=== PATIENT | female | born 1965 | race Caucasian/White ===

== ENCOUNTER 2017-05-28 06:01 | Inpatient (IN) | payer BC ==
--- NOTE | 2017-05-15 14:38 | HP ---
HISTORY AND PHYSICAL: DATE OF ADMISSION: 05/28/17 She is entering [facility] on 05/28/17 for left total knee replacement. CHIEF COMPLAINT: Left knee pain. HISTORY OF PRESENT ILLNESS: The patient has had many years of severe arthritis of the left knee with deformity. She has lived as long as she can with it. She has tried all of the nonoperative care and now, a knee replacement has been requested and recommended. The patient has been seen and checked in my office multiple times. We have reviewed the goals, risks, and complications in the office and her questions have been answered. She has been checked preoperatively also by Dr. [place] Ribeiro. PAST MEDICAL HISTORY: Coronary artery disease with a stent in 2012. She had a recent pharmacologic stress test that was checked and reviewed by Dr. Ribeiro and there was felt to be no significant change from her previous testing. PAST SURGICAL HISTORY: She has had a hernia repair. MEDICATIONS: Daily meds include: 1. Metoprolol. 2. Aspirin. No bleeding tendencies. FAMILY HISTORY: No cancers. SOCIAL HISTORY: Alcohol consumption is 1 drink per month. She quit smoking many, many years ago. REVIEW OF SYSTEMS: No recent chest pain and no recent shortness of breath. PHYSICAL EXAMINATION GENERAL: Overweight, not acutely distressed, limping on the left lower extremity and the right lower extremity. VITAL SIGNS: The temp is 97.6, pulse 76, blood pressure 135/80. HEENT: The head is NC/AT. LUNGS: Clear bilaterally. HEART: Regular. S1 and S2 are normal. I do not appreciate any murmurs or gallops. ABDOMEN: Round, soft, nontender. I do not appreciate organomegaly. EXTREMITIES: She does a leg raise on the left lower extremity. The left dorsalis pedis pulse is 2+. The left knee has varus with medial tenderness, some anterior tenderness, nontender laterally and posteriorly. MCL and LCL are stable. Cricket and posterior drawer not done. The thigh and calf are soft. NEUROLOGIC: Cranial nerves are grossly intact. IMAGING: The knee radiographs show severe arthritis of the left knee with varus malalignment, [id number] sclerosis and osteophyte formation. IMPRESSION: Severe arthritis of the left knee with varus deformity. PLAN: Left total knee replacement. [id number]/[facility] #: [id number] [facility]
[~2017-05-28 06:01] MED LIST: Buffered Lidocaine 0.9% SYRIN* 5 ML/SYR SYRINGE INTRADERM ONE; Famotidine IV* 10 MG/ML 2 ML (20 mg) IV ONE; Metoclopramide IV* 5 MG/ML 2 ML VIAL IV SLOW PU ONE
[2017-05-28] MEDS ORDERED: Buffered Lidocaine 0.9% SYRIN* 5 ML/SYR SYRINGE ONE (06:10)
[2017-05-28] MEDS ORDERED: Famotidine IV* 10 MG/ML 2 ML (20 mg) ONE (06:10)
[2017-05-28] MEDS ORDERED: ceFAZolin 2 GM PREMIX (*) 50 ML IVPB ONE (06:10)
[2017-05-28] MEDS ORDERED: Metoclopramide IV* 5 MG/ML 2 ML VIAL ONE (06:10)
[2017-05-28] MEDS ORDERED: Bupivacaine 0.25% SDV* 30 ML ONE (07:18)
[2017-05-28] MEDS ORDERED: Bupivacaine 0.5% SDV PF* 30 ML VIAL ONE (07:18)
[2017-05-28] MEDS ORDERED: ceFAZolin 1 GM* X ONE DOSE IVPB ×2 (07:30)
[2017-05-28] MEDS ORDERED: KETAMINE HCL* 50 MG/ML 10 ML VIAL ONE (07:42)
[2017-05-28] MEDS ORDERED: Midazolam* 1 MG/ML 5 ML VIAL (5 MG) ONE ×2 (07:42→08:49)
[2017-05-28] MEDS ORDERED: Propofol* 10 MG/ML 20 ML BTL IV PUSH ONE ×2 (09:07→09:59)
[2017-05-28] MEDS ORDERED: Lactated Ringers 500 ml BAG* 500 ML IV PRN (09:08)
[2017-05-28] MEDS ORDERED: Ondansetron INJ* 2 MG/ML VIAL IV PRN ×3 (09:08→11:09)
[2017-05-28] MEDS ORDERED: diPHENhydraMINE IV* 50 MG/ML 1 ml VIAL (BENADRYL) IV PRN (09:08)
[2017-05-28] MEDS ORDERED: HYDROmorphone PCA* 20 MG/20 ML PCA.SYRING PCA SCH (10:00)
[2017-05-28] MEDS ORDERED: Ropivacaine* 300 MG in NS 0.9% 250 ML* 240 ML EPIDURAL SCH ×2 (10:00→10:30)
[2017-05-28] MEDS ORDERED: Sodium Chloride * 10 ML ONE (10:30)
[2017-05-28] MEDS ORDERED: Ropivacaine (OR use only) 2 MG/ML 1 ML ONE (10:30)
[2017-05-28] MEDS ORDERED: Morphine INJ* 2 MG/ML 1 ML SYRINGE (TWO MG - NEW SYRINGE VERSION) IV PRN (11:09)
[2017-05-28] MEDS ORDERED: HYDROmorphone INJ* 1 MG/ML CARPUJECT SYRINGE ONE ×2 (11:09→11:39)
[2017-05-28] MEDS ORDERED: traZODone TAB* 50 MG TAB PO PRN (11:09)
[2017-05-28] MEDS: HYDROmorphone INJ* 1 MG/ML CARPUJECT SYRINGE IV PRN ×2 (11:15→11:30)
[2017-05-28] MEDS ORDERED: oxyCODONE TAB* 5 MG TAB PO PRN (11:19)
[2017-05-28] MEDS ORDERED: ValACYclovir (*) 500 MG TAB PO PRN (11:20)
[2017-05-28] MEDS ORDERED: Fluticasone NASAL SPRAY 50MCG* 16 gm SPRAY BTL NASAL PRN (11:20)
[2017-05-28] MEDS ORDERED: HYDROmorphone INJ* 1 MG/ML CARPUJECT SYRINGE IV PRN (11:31)
[2017-05-28] MEDS ORDERED: HYDROmorphone PCA* 20 MG/20 ML PCA.SYRING ONE (11:41)
--- NOTE | 2017-05-28 12:27 | RAD ---
HISTORY: Postop COMPARISONS: March 13, 2017 VIEWS: 2, Frontal and lateral views of the left knee FINDINGS: BONE DENSITY: Normal. BONES: The patient is status post left knee arthroplasty. There is no hardware failure or osteolysis. JOINTS: The patient is status post left knee arthroplasty. ALIGNMENT: There is no dislocation. SOFT TISSUES: There is post surgical change to the soft tissues. OTHER FINDINGS: None. IMPRESSION: STATUS POST LEFT KNEE ARTHROPATHY
[2017-05-28] MEDS ORDERED: Dextrose 50% Syringe 50 ML* 25 GM/50 ML SYRINGE IV PUSH PRN (13:11)
[2017-05-28] MEDS: Clindamycin CAP* 150 MG PO SCH ×3 (15:20→20:58)
[2017-05-28] MEDS: ceFAZolin 1 GM VIAL(*) 1 GM in NS 0.9% 50 ML* 50 ML IVPB SCH ×2 (15:21→23:20)
[2017-05-28] MEDS: Insulin LISPRO* 1 UNITS UNIT SUBCUT SCH (17:18)
[2017-05-28] MEDS: CHROMIUM PICOLINATE 200 MCG PO SCH (17:19)
--- NOTE | 2017-05-28 17:24 | CONS ---
CONSULTATION REPORT: DATE OF ADMISSION: 05/28/17 CONSULTING PHYSICIAN: Sosa Garcia MD, (dictated by Nery Lee NP). PRIMARY CARE PHYSICIAN: Dr. Otero. CHIEF COMPLAINT: Postop left total knee arthroplasty. HISTORY OF PRESENT ILLNESS: The patient has had many years of severe arthritis of the left knee with deformity. Dr. Otero has been following. She has tried conservative options, now has elected to have a total left knee replacement. PAST MEDICAL HISTORY: 1. Coronary artery disease with an CO in 2012 with 3 stents placed. 2. Hypertension. 3. Hyperlipidemia and states she dose not tolerate Cholesterol lowering medications. 4. Hypothyroidism. 5. Diabetes 6. Herpes Simplex type 1. PAST SURGICAL HISTORY: She had a hernia repair in 2014. Previous to that, had a left breast benign tumor removed. HOME MEDICATIONS: 1. Tramadol 50 mg p.o. 4 times a day p.r.n. 2. Glipizide 5 mg p.o. b.i.d. 3. Valtrex 500 mg p.o. daily p.r.n. outbreak. 4. Nasal spray triamcinolone 1 puff nasal daily p.r.n. 5. Multivitamin 1 tablet p.o. 6. Metoprolol 50 mg b.i.d. 7. Metformin 1000 mg p.o. b.i.d. 8. Lisinopril 40 mg p.o. daily. 9. Victoza 1.8 subcu daily. 10. Levothyroxine 125 mcg p.o. daily. 11. Insulin degludec 24 units b.i.d. 12. Ibuprofen 600 mg p.o. every 6 hours p.r.n. 13. Hydrochlorothiazide 12.5 mg p.o. every a.m. 14. Ferrous sulfate 28 mg p.o. every p.m. 15. Clindamycin 150 mg p.o. 4 times a day. 16. Aspirin 81 mg p.o. daily. 17. Vitamin C 1000 mg p.o. every a.m. 18. Amlodipine 2.5 mg p.o. daily. FAMILY HISTORY: There is no history of heart disease, cancer or diabetes. SOCIAL HISTORY: She is . Lives with her spouse. Has 1 daughter who is in her 30s. She quit smoking many years ago. Minimal alcohol consumption. No illicit drug use. REVIEW OF SYSTEMS: Denies any recent weight loss or gain. Denies fatigue, fever, weakness, trouble sleeping. Skin: No rashes, itching or dryness. Denies headache or head injury. Denies earaches. No change in eye vision. Denies stuffiness of nose or sinus pain. Denies dry mouth, bleeding, or dentures. Neck: Free of lumps. No swollen glands. Denies pain. Respiratory : Denies cough, wheezing or shortness of breath. Vascular: Denies chest pain , difficulty breathing, shortness of breath with activity. Has not had any issues since her stent placement in 2012. GI: Denies nausea, vomiting, diarrhea or constipation. Urinary: Denies urgency, burning or pain. No frequency, no blood in urine. Musculoskeletal: Complains of left knee pain. Other joints asymptomatic. Neuro: Denies dizziness, fainting, seizures, weakness, numbness or tingling. Hematologic: Denies easy bruising or bleeding. Endocrine: Denies heat or cold intolerance. She is taking Synthroid. Psych: Denies depression, nervousness or increasing stress. PHYSICAL EXAMINATION: General: Overweight, not acutely distressed. Lying on the stretcher in upright position, fully awake and talkative. Most recent vital signs: Heart rate 66, respiratory rate 16, O2 sat 100% on 2 L , blood pressure 136/79, temperature 96.8. HEENT: Asymptomatic. Lungs: Clear bilaterally. Heart: Regular sinus rhythm. S1 and S2 normal. I do not appreciate any murmurs or gallops. Abdomen: Round, soft, nontender. Hypoactive bowel sounds. Extremities: Currently left leg in Oswaldo wrap with ice to it, able to lift her right leg easily, good range of motion of feet bilaterally. Good sensation. Positive pedal pulses bilaterally. Neuro: Cranial nerves are grossly intact. She is awake, alert and oriented x3. Airplane Mechanic were equal. DIAGNOSTIC STUDIES: Knee x-rays, impression: Status post left knee arthroplasty. Recent blood work: Currently her fingerstick is 154, glucose. Her preop H and H 13.2 and 39 on 05/15/17. Chemistry: Sodium was 138, potassium 4.3, chloride 102, carbon dioxide 28, BUN 27, creatinine 0.97, glucose at that time fasting was 78. Her hemoglobin A1c in April was 9.1. Her cholesterol in October of this year was 218, triglycerides 208, LDL 140, HDL 36.3. TSH in April of this year 3.45, free T4 of 1.02. ASSESSMENT AND PLAN: This is a 51-year-old female who presented to [facility] today for an elective left total knee arthroplasty, surgeon, Dr. Otero. She had preop cardiac clearance by Dr. Ribeiro, primary physician Dr. Rivers. She is now in recovery room doing well, alert, oriented, moving all extremities. No complaints. She will be transferred to the surgical floor. We have been asked to consult for management given her multiple comorbidities. 1. Total left knee arthroplasty to be followed by surgical orthopedics. 2. Hypertension. We will continue her metoprolol, amlodipine, hydrochlorothiazide, lisinopril, with hold parameters for systolic BP less than 100. 3. Hypothyroidism. We will continue her levothyroxine. 4. Diabetes. I have placed her on a heart healthy, consistent carb diet. We will order fingersticks before meals. We will cover with lispro insulin per protocol. Continue her glipizide and hold her metformin. 5. Hyperlipidemia. As stated by the patient, it is under control and that she is not able to tolerate any statins due to nausea and joint pain. 6. Deep vein thrombosis prophylaxis, she is at a high risk. Stated by the patient, she does not tolerate anticoagulation We will defer to Orthopedics to decide on appropriate treatment and management of her deep vein thrombosis protection. She is currently on aspirin b.i.d. she will be out of bed per Orthopedics orders as soon as possible. 7. Fluids, electrolytes and nutrition. Consistent carb, Heart Healthy Diet. When she is taking adequate p.o. intake her IV will be changed to KVO. 8. Code status, is a full code status. 9. Her surrogate decision maker is her who is at the bedside throughout my exam. TIME SPENT: Time spent on this admission was approximately 60 minutes, with greater than half the time was spent [id number] with the patient obtaining my history and physical, the other half was spent going over the plan of care and implementing the plan of care. I did discuss this case with Dr. Garcia, who is in agreement with the plan. NERY LUPE, TOWER CRANE OPERATOR [id number]/[facility] #: [id number] [facility]
[2017-05-28] MEDS: Aspirin TAB* 325 MG PO SCH (20:43)
[2017-05-28] MEDS: Docusate CAP* 100 MG PO SCH (20:44)
[2017-05-28] MEDS: glipiZIDE TAB* 5 MG PO SCH (20:45)
[2017-05-28] MEDS: Metoprolol Succinate XL TAB* 50 MG PO SCH (20:45)
[2017-05-28] MEDS ORDERED: metFORMIN* 1,000 MG TAB PO SCH (21:00)
--- NOTE | 2017-05-29 00:38 | OP ---
CC: Dr. Sanford Hobbs OPERATIVE REPORT: DATE OF OPERATION: 05/28/17 DATE OF : 63 SURGICAL CARE: Left knee. SURGEON: Adriel Otero MD ASSISTANTS: 1. OLENA Groves 2. Domonique Perry, surgical orderly. ANESTHESIOLOGIST: Dr. Tyler Poe. ANESTHESIA: Spinal with epidural and IV sedation. PRE-OPERATIVE DIAGNOSIS: Severe arthritis of the left knee with varus malalignment, longstanding, n o longer responsive to the nonoperative care. POST-OPERATIVE DIAGNOSIS: Severe arthritis of the left knee with varus malalignment, longstanding, no longer responsive to the nonoperative care. OPERATIVE PROCEDURE: Left total knee replacement. COMPONENTS UTILIZED: Stephie Persona knee, a size 7 femur, a size 32 patella, a size D tibia with a 10 articular surface. COMPLICATIONS: There were no complications. DRAINS: Two blood collection drains, left knee, at the end of the case. BLOOD LOSS: 200 mL. REPLACEMENT: Crystalloid fluids. OPERATIVE INDICATION: Severe arthritis of the knee, it has been no longer responsive to nonoperativ e care. She has been in an business operations manager brace for months with increasing pain. DESCRIPTION OF PROCEDURE: The patient was brought to the operating room and placed on the operating room table in a supine position then into a seated position for administration of the anesthetic. She was returned to the supine position. A Pablo catheter was carefully inserted. The left proxima l thigh was wrapped with a tourniquet and the left leg was positioned on a padded foot piece for the left foot. The leg was given a preliminary chlorhexidine prep in the region of the knee and then a formal ChloraPrep from the tourniquet to the tips of the toes. After prepping, draping, and sealin g off, we did our universal protocol time-out confirming Ayana Aleksey and a plan for a left total kne e replacement. We all agreed and we proceeded. The tourniquet control was utilized on this case du ring the cleanup and cementing phase of the case and the rest of the surgical care was done mostly w ith the knee acutely flexed with the left foot on a padded foot piece. The skin incision went from 2 fingerbreadths superior to the superior pole of the patella to the medial aspect of the tibial tub ercle. The skin and subcu was divided down to the deep fascia. The prepatellar bursa was traversed and the quadriceps tendon was divided at the junction of the vastus, rectus femoris and vastus medi amanda, staying as close to vastus medialis muscle as possible. Medial parapatellar and then down to the tibia where the tissues were divided down to the medial aspect of the tibial tubercle. The medi al soft tissues and the tibia were elevated subperiosteally going around to the deep MCL and then to the posterior medial corner of the knee. There was osteophyte on the medial tibial plateau, medial femoral condyle, intercondylar notch, the patella. Complete eburnation of bone medial femoral cond yle, medial tibial plateau with some scooping out of the medial tibial plateau. Eburnation of bone on the lateral patellar facet as well. The remains of the anterior horn of medial meniscus was caref ully excised. The MCL was carefully preserved throughout the entire case. The intercondylar osteop hytes were removed. The ACL and PCL were uplifted from their femoral origins and the tibia was made so that it could be subluxated for from under the femur. The PCL was carefully excised and great c are was taken while working in the popliteal fossa with careful hemostasis. The lateral meniscus wa s carefully excised and careful hemostasis was kept at the periphery of the lateral meniscus for the lateral geniculate. The distal anterior femur was exposed subperiosteally for referencing and yoselin uring and peripatellar synovectomy was completed for the patellar workup. The proximal tibial cut wa s made. First our goal here was to have a tibial surface that would be perpendicular to the long ax is of the tibia and have a slight posterior slope removing a couple of millimeters on the medial jong e and 10 to 14 mm on lateral side. The femoral intramedullary drill was then completed and the femu r was suctioned to discourage any embolization now or later in the case. The distal femoral cutting guide was applied on one because of a small flexion contracture in 6 degrees of valgus and the dist al femoral cut was completed. The extension gap was noted to accommodate the 10-mm block. The femu r was measured for a size 7 and the femur completed with the anterior, posterior, and chamfering cut s. After this, we removed the remainder of the medial meniscus carefully preserving the MCL. We re moved the remainder of the posterior horn medial meniscus, the posterior horn lateral meniscus again achieving great care for hemostasis posteriorly. Large osteophyte was removed from the posterior m edial femoral condyle with an osteotome. At this point, we had nice ligamentous balance and 90 degre es of flexion with a 10- mm block. The femur was completed with the intercondylar cutout. The femu r was the suctioned empty once again. The femoral canal was cleaned x6 with saline, suctioned empty , and the bone plug was inserted. The tibia was completed for a size D, and the knee was articulate d and extended with the D tibia 10 articular surface and the 7 femur with only extension, nice ligam entous balance in extension, and ligamentous balance in 90 degrees of flexion as well. The patella was cut flat, a 32 was chosen, 3 drill holes were made and these were undercut for optimal cement in terdigitation. The lateral release was not necessary. The leg was exsanguinated, the tourniquet was elevated to 300, and we then proceeded with a cleanup of the knee with 2 L of pulsed saline with the knee in extension and lots of suctioning and cleanup. The knee was then flexed. The retractors were put into position and the bony surfaces were cleane d in flexion with pulsed saline irrigation. All surfaces were then dried. The cement was mixed and the components were cemented into position, the patella followed by the tibia, followed by the femu r. Each was impacted, excess cement was removed, and the knee was articulated and extended during t he final hardening. Once the hardening was complete then we removed the excess cement that was still present posteriorly around the patella, medial, lateral, and the femoral component. The soft tissues were infiltrated w ith Marcaine 0.5% without epinephrine 30 mL and the careful hemostasis was achieved also during the closure. During the closure, we irrigated several times with the saline. The knee was flexed compl etely past 125 degrees several times and extended completely. Ligaments were noted to be stable. T he quad mechanism closed with interrupted #1 Polysorb in a figure-of- eight fashion, the same with t he medial retinaculum. Distally, we used 0 Polysorb. We used 0 Polysorb on the deep fascial bursa a nd then 3-0 Polysorb on the superficial subcu and the skin was carefully closed with torres. The k nee was washed and dried and covered with Betadine-soaked release followed by sterile gauze. The dr goodwin were brought out through superolateral pouch and they were addressed the same way and then ster ile Webril, cryotherapy cuff, ABD pads, and a 6- inch Oswaldo bandage loosely applied. The dorsalis ped is pulse was noted to be 2+ at the end of the case, and the patient was returned to the [facility] [place] in stable and satisfactory condition having tolerated the procedure very well. [id number]/[facility] #: [id number]
[2017-05-29] MEDS: Levothyroxine TAB* 100 MCG TAB PO SCH (05:55)
[2017-05-29] MEDS ORDERED: diPHENhydraMINE IV* 50 MG/ML 1 ml VIAL (BENADRYL) IV PRN (06:00)
[2017-05-29 06:37] LABS: Hematocrit 29 % (35-47); Hemoglobin 9.9 g/dl (12.0-16.0)
[2017-05-29 06:53] LABS: BUN/Creatinine Ratio 17.9 (8-20); Calcium 7.9 mg/dL (8.6-10.3); EGFR Non-African American 54.4 (>60); Potassium 3.7 mmol/L (3.5-5.0)
[2017-05-29] MEDS: oxyCODONE TAB* 5 MG TAB PO PRN ×4 (07:12→20:09)
[2017-05-29] MEDS: ceFAZolin 1 GM VIAL(*) 1 GM in NS 0.9% 50 ML* 50 ML IVPB SCH (07:48)
[2017-05-29] MEDS: Metoprolol Succinate XL TAB* 50 MG PO SCH ×2 (08:20→20:11)
[2017-05-29] MEDS: Insulin LISPRO* 1 UNITS UNIT SUBCUT SCH ×3 (08:21→17:48)
[2017-05-29] MEDS: Clindamycin CAP* 150 MG PO SCH ×4 (08:23→20:10)
[2017-05-29] MEDS: amLODIPine TAB* 5 MG PO SCH (08:24)
[2017-05-29] MEDS: Docusate CAP* 100 MG PO SCH ×2 (08:24→20:10)
[2017-05-29] MEDS: Vitamin THERAPEUTIC TAB PO SCH (08:24)
[2017-05-29] MEDS: Aspirin TAB* 325 MG PO SCH ×2 (08:24→20:10)
[2017-05-29] MEDS: glipiZIDE TAB* 5 MG PO SCH ×2 (08:24→20:10)
[2017-05-29] MEDS: Hydrochlorothiazide TAB* 25 MG PO SCH (08:25)
[2017-05-29] MEDS: Ascorbic Acid TAB* 500 MG PO SCH (08:26)
[2017-05-29] MEDS: Lisinopril TAB* 10 MG PO SCH (08:26)
[2017-05-29] MEDS ORDERED: HYDROCHLOROTHIAZIDE PO SCH (09:00)
[2017-05-29] MEDS ORDERED: LISINOPRIL 40 MG PO SCH (09:00)
[2017-05-29] MEDS ORDERED: NON FORMULARY MED* (Amlodipine Besylate [Norvasc 2.5 Mg Tab] 2.5 MG) PO SCH (09:00)
--- NOTE | 2017-05-29 16:48 | PN ---
Subjective Date of Service: 05/29/17 Interval History: Patient seen and examined at bedside. Patient states she is having some burning while urinating that just started as well as frequency. She is getting some pain relief with her TRANSLATOR AND INTERPRETER and oral oxycodone but still rates is at 7/10. She denies SOB. Family History: Unchanged from Admission Social History: Unchanged from Admission Past Medical History: Unchanged from Admission Objective Active Medications: Amlodipine Besylate (Norvasc Tab*) 2.5 mg PO QAM DOLLY Ascorbic Acid (Vitamin C Tab*) 1,000 mg PO QAM DOLLY Aspirin (Aspirin Tab*) 325 mg PO BID DOLLY Clindamycin HCl (Cleocin Cap*) 150 mg PO QID DOLLY Diphenhydramine HCl (Benadryl Iv*) 25 mg IV Q6H PRN Docusate Sodium (Colace Cap*) 100 mg PO BID DOLLY Fluticasone Propionate (Flonase Nasal [place] 50mcg*) 1 spray NASAL DAILY PRN Glipizide (Glucotrol Tab*) 5 mg PO BID DOLLY Hydrochlorothiazide (Hydrodiuril Tab*) 12.5 mg PO QAM [facility] Hydromorphone HCl (Dilaudid Cytology Laboratory Manager*) 20 mg in 20 mls @ 0 mls/hr TRANSLATOR AND INTERPRETER .change Q24H DOLLY; Per Protocol Lactated Ringer's (Lactated Ringers 1000 Ml Bag*) 1,000 mls @ 100 mls/hr IV PER RATE DOLLY Insulin Human Lispro (Humalog*) 0 units SUBCUT AC DOLLY Levothyroxine Sodium (Synthroid Tab*) 125 mcg PO 0600 DOLLY Lisinopril (Prinivil Tab*) 40 mg PO QAM [facility] Metoprolol Succinate (Toprol Xl Tab*) 50 mg PO BID DOLLY Morphine Sulfate (Morphine Inj (Syringe)*) 2 mg IV Q2H PRN Multivitamins (Theragran Tab*) 1 tab PO DAILY DOLLY Chromium Picolinate [Chromium Picolinate ] 200 Mcg 200 mcg PO QPM DOLLY Ondansetron HCl (Zofran Inj*) 4 mg IV Q6H PRN Oxycodone HCl (Roxycodone Tab*) 10 mg PO Q4H PRN Oxycodone HCl (Roxycodone Tab*) 5 mg PO Q4H PRN Trazodone HCl (Desyrel Tab*) 25 mg PO BEDTIME PRN Valacyclovir HCl (Valtrex 500 Mg (*)) 500 mg PO DAILY PRN; Protocol 05/29/17 05/29/17 05/29/17 07:12 07:28 08:00 Temperature 98.6 F Pulse Rate 72 Respiratory 16 16 18 Rate Blood Pressure 122/52 (mmHg) O2 Sat by Pulse 100 96 Oximetry Oxygen Devices in Use Now: Nasal Cannula Appearance: sitting up in bed, NAD Eyes: No Scleral Icterus, PERRLA Ears/Nose/Mouth/Throat: NL Teeth, Lips, Gums Neck: NL Appearance and Movements; NL JVP Respiratory: Symmetrical Chest Expansion and Respiratory Effort, Clear to Auscultation Cardiovascular: NL Sounds; No Murmurs; No JVD Abdominal: NL Sounds; No Tenderness; No Distention Extremities: No Edema Skin: - - L knee incision C/D/I Neurological: Alert and Oriented x 3, NL Muscle Strength and Tone Result Diagrams: 05/29/17 06:10 05/29/17 06:10 Assess/Plan/Problems-Billing Patient is a 51 y/o F w/ hx of CAD s/p stents 2012, HTN, hypothyroidism, Type II diabetes, HTN who underwent an elective left toal knee replacement on 2016. Hospitalists were asked to assist with management of the patient medical co-morbities. - Patient Problems (1) Status post left knee replacement Comment: Management per Orthopedic Surgery. H/H stable post-op. Samy removed this AM. Continue pain control with Dilaudid TRANSLATOR AND INTERPRETER and PO Oxycodone. PT/OT (2) Type II diabetes mellitus Comment: Sugars relatively controlled with sliding scale and glipizide only. Metformin is on hold. Here injectable Tresiba 24 units which she supposedly take 2x daily. This is on hold as sugars have been <200. Continue sliding scale only for now. (3) Dysuria Comment: Will check UA/UC. Await results for abx. (4) CAD (coronary artery disease) Comment: Continue ASA and beta ida. She does not tolerate statins. (5) HTN (hypertension) Comment: Controlled with home regimen of Lisinopril, Amlodipine, HCTZ, and Metoprolol. (6) HLD (hyperlipidemia) Comment: The patient does not tolerate statins. (7) Hypothyroidism Comment: Continue Synthroid. (8) DVT prophylaxis Comment: ASA BID per Ortho. (9) Full code status Current Visit: Yes Status: Acute Code(s): Z78.9 - OTHER SPECIFIED HEALTH STATUS SNOMED Code(s): 950513584 Status and Disposition: Inpatient. Dispo per orthopedic surgery.
[2017-05-29] MEDS: CHROMIUM PICOLINATE 200 MCG PO SCH (17:50)
[2017-05-29 19:08] LABS: Urine Bilirubin Negative (Negative); Urine Glucose 3+(>=500 mg/dL) (Negative); Urine Nitrite Negative (Negative)
[2017-05-30] MEDS: oxyCODONE TAB* 5 MG TAB PO PRN ×6 (00:14→23:06)
[2017-05-30] MEDS ORDERED: NS 0.9% 500 ML BAG* 500 ML IV SCH (03:00)
[2017-05-30] MEDS ORDERED: Levothyroxine TAB* 25 MCG TAB ONE (06:14)
[2017-05-30] MEDS: Levothyroxine TAB* 100 MCG TAB PO SCH (06:18)
[2017-05-30 06:40] LABS: Hematocrit 32 % (35-47); Hemoglobin 10.8 g/dl (12.0-16.0)
[2017-05-30] MEDS ORDERED: Insulin GLARGINE(*) 1 UNITS UNIT SUBCUT SCH ×2 (08:00→21:00)
[2017-05-30] MEDS: Insulin LISPRO* 1 UNITS UNIT SUBCUT SCH ×3 (08:43→17:30)
[2017-05-30] MEDS: Ascorbic Acid TAB* 500 MG PO SCH (10:15)
[2017-05-30] MEDS: Vitamin THERAPEUTIC TAB PO SCH (10:18)
[2017-05-30] MEDS: glipiZIDE TAB* 5 MG PO SCH ×2 (10:18→21:25)
[2017-05-30] MEDS: amLODIPine TAB* 5 MG PO SCH (10:18)
[2017-05-30] MEDS: Aspirin TAB* 325 MG PO SCH ×2 (10:18→21:24)
[2017-05-30] MEDS: Docusate CAP* 100 MG PO SCH ×2 (10:19→21:25)
[2017-05-30] MEDS: Hydrochlorothiazide TAB* 25 MG PO SCH (10:19)
[2017-05-30] MEDS: Metoprolol Succinate XL TAB* 50 MG PO SCH ×2 (10:19→21:25)
[2017-05-30] MEDS: Lisinopril TAB* 10 MG PO SCH (10:20)
[2017-05-30] MEDS: Clindamycin CAP* 150 MG PO SCH ×4 (10:22→21:25)
--- NOTE | 2017-05-30 10:47 | PN ---
Progress Note - Progress Note Date of Service: 05/30/17 SOAP: Subjective: []Patient seen OOB in chair, knee pain moderate but just took Roxycodone and it is helping. 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 Objective: [] Vital Signs Temp 97.6 F 05/30/17 07:20 Pulse 101 05/30/17 07:20 Resp 18 05/30/17 10:24 BP 154/74 05/30/17 07:20 Pulse Ox 96 05/30/17 08:34 Intake & Output 05/29/17 05/30/17 05/30/17 18:59 06:59 18:59 Intake Total 2731 1350 360 Output Total 1150 1800 550 Balance 1581 -450 -190 Intake: IV Fluids 1666 ABX - CEFAZOLIN 57 LR 1609 Oral 1065 1350 360 Output: Urine 1150 1800 550 Laboratory Results - last 24 hr 05/29/17 05/29/17 05/29/17 11:53 17:41 18:55 Hgb Hct POC Glucose (mg/dL) 377 H 303 H Urine Color Straw Urine Appearance Clear Urine pH 6.0 Ur Specific [place] 1.011 Urine Protein Negative Urine Ketones Trace H Urine Blood Negative Urine Nitrate Negative Urine Bilirubin Negative Urine Urobilinogen Negative Ur Leukocyte Esterase Negative Urine Glucose 3+(>=500 mg/dl) H Urine Ascorbic Acid * H 05/30/17 06:17 Hgb 10.8 L Hct 32 L POC Glucose (mg/dL) Urine Color Urine Appearance Urine pH Ur Specific [place] Urine Protein Urine Ketones Urine Blood Urine Nitrate Urine Bilirubin Urine Urobilinogen Ur Leukocyte Esterase Urine Glucose Urine Ascorbic Acid Left knee dressings removed, incision benign Wound washed with mild soap, dried with new betadine soaked telfa and 4x4s, MICHEAL applied. calf NT +DF/PF left ankle sensation and circulation intact Assessment: []s/p Left total knee arthroplasty POD #2 Plan: []ASA for DVT prophylaxis Discontinue REDUCTION FURNACE OPERATOR HELPER Discharge home with VNS Saturday
[2017-05-30] MEDS ORDERED: Magnesium Hydroxide LIQ* 30 ML UDC PO PRN (10:48)
[2017-05-30] MEDS ORDERED: Polyethylene Glycol 3350* 17 GM PACKET PO PRN (10:49)
--- NOTE | 2017-05-30 16:23 | PN ---
Subjective Date of Service: 05/30/17 Interval History: Patient seen and examined at bedside. Patient still having urinary frequency. She states pain improved. Sugars in the 200s this morning. Family History: Unchanged from Admission Social History: Unchanged from Admission Past Medical History: Unchanged from Admission Objective Active Medications: Amlodipine Besylate (Norvasc Tab*) 2.5 mg PO QAM [facility] Ascorbic Acid (Vitamin C Tab*) 1,000 mg PO QAM [facility] Aspirin (Aspirin Tab*) 325 mg PO BID [facility] Clindamycin HCl (Cleocin Cap*) 150 mg PO QID [facility] Diphenhydramine HCl (Benadryl Iv*) 25 mg IV Q6H PRN Docusate Sodium (Colace Cap*) 100 mg PO BID [facility] Fluticasone Propionate (Flonase Nasal [place] 50mcg*) 1 spray NASAL DAILY PRN Glipizide (Glucotrol Tab*) 5 mg PO BID [facility] Hydrochlorothiazide (Hydrodiuril Tab*) 12.5 mg PO QAM [facility] Sodium Chloride (Ns 0.9% 500 Ml Bag*) 500 mls @ 0 mls/hr IV PER RATE [facility] Insulin Human Lispro (Humalog*) 0 units SUBCUT AC [facility] Levothyroxine Sodium (Synthroid Tab*) 125 mcg PO 0600 [facility] Lisinopril (Prinivil Tab*) 40 mg PO QAM [facility] Magnesium Hydroxide (Milk Of Magnesia Liq*) 30 ml PO Q6H PRN Metoprolol Succinate (Toprol Xl Tab*) 50 mg PO BID [facility] Morphine Sulfate (Morphine Inj (Syringe)*) 2 mg IV Q2H PRN Multivitamins (Theragran Tab*) 1 tab PO DAILY [facility] Chromium Picolinate [Chromium Picolinate ] 200 Mcg 200 mcg PO QPM [facility] Ondansetron HCl (Zofran Inj*) 4 mg IV Q6H PRN Oxycodone HCl (Roxycodone Tab*) 10 mg PO Q4H PRN Oxycodone HCl (Roxycodone Tab*) 5 mg PO Q4H PRN Polyethylene Glycol/Electrolytes (Miralax*) 17 gm PO DAILY PRN Trazodone HCl (Desyrel Tab*) 25 mg PO BEDTIME PRN Valacyclovir HCl (Valtrex 500 Mg (*)) 500 mg PO DAILY PRN; Protocol Vital Signs 05/30/17 05/30/1717 06:57 07:20 08:00 Temperature 97.6 F Pulse Rate 94 101 Respiratory 15 16 18 Rate Blood Pressure 154/74 (mmHg) O2 Sat by Pulse 100 99 97 Oximetry Oxygen Devices in Use Now: None Appearance: sitting up in chair, NAD Eyes: No Scleral Icterus, PERRLA Ears/Nose/Mouth/Throat: NL Teeth, Lips, Gums Neck: NL Appearance and Movements; NL JVP Respiratory: Symmetrical Chest Expansion and Respiratory Effort, Clear to Auscultation Cardiovascular: NL Sounds; No Murmurs; No JVD, RRR Abdominal: NL Sounds; No Tenderness; No Distention Lymphatic: No Cervical Adenopathy Extremities: No Edema Skin: - - L knee incision C/D/I Neurological: Alert and Oriented x 3, NL Muscle Strength and Tone Lines/Tubes/Other Access: Clean, Dry and Intact Peripheral IV Nutrition: Taking PO's Result Diagrams: 05/30/17 06:17 05/29/17 06:10 Assess/Plan/Problems-Billing Patient is a 51 y/o F w/ hx of CAD s/p stents 2013, HTN, hypothyroidism, Type II diabetes, HTN who underwent an elective left toal knee replacement on 2016. Hospitalists were asked to assist with management of the patient medical co-morbities. - Patient Problems (1) Status post left knee replacement Comment: Management per Orthopedic Surgery. H/H stable post-op. Continue pain control with PO Oxycodone. PT/OT (2) Type II diabetes mellitus Comment: Sugars relatively controlled with sliding scale and glipizide only. Restarted Lantus this AM. Continue sliding scale only for now. (3) Dysuria Comment: UA negative. Suspect from elevated sugars. (4) CAD (coronary artery disease) Comment: Continue ASA and beta ida. She does not tolerate statins. (5) HTN (hypertension) Comment: Controlled with home regimen of Lisinopril, Amlodipine, HCTZ, and Metoprolol. (6) HLD (hyperlipidemia) Comment: The patient does not tolerate statins. (7) Hypothyroidism Comment: Continue Synthroid. (8) DVT prophylaxis Comment: ASA BID per Ortho. (9) Full code status Status and Disposition: Inpatient. Dispo per orthopedic surgery.
[2017-05-30] MEDS: CHROMIUM PICOLINATE 200 MCG PO SCH (16:59)
[2017-05-31] MEDS: oxyCODONE TAB* 5 MG TAB PO PRN ×2 (03:45→08:08)
[2017-05-31] MEDS ORDERED: Levothyroxine TAB* 125 MCG TAB PO SCH (06:00)
[2017-05-31 07:05] LABS: Hematocrit 29 % (35-47); Hemoglobin 10.2 g/dl (12.0-16.0)
[2017-05-31] MEDS: amLODIPine TAB* 5 MG PO SCH (08:06)
[2017-05-31] MEDS: Hydrochlorothiazide TAB* 25 MG PO SCH (08:06)
[2017-05-31] MEDS: Docusate CAP* 100 MG PO SCH (08:07)
[2017-05-31] MEDS: Clindamycin CAP* 150 MG PO SCH (08:07)
[2017-05-31] MEDS: Aspirin TAB* 325 MG PO SCH (08:07)
[2017-05-31] MEDS: Lisinopril TAB* 10 MG PO SCH (08:07)
[2017-05-31] MEDS: Ascorbic Acid TAB* 500 MG PO SCH (08:07)
[2017-05-31] MEDS: Vitamin THERAPEUTIC TAB PO SCH (08:07)
[2017-05-31] MEDS: glipiZIDE TAB* 5 MG PO SCH (08:07)
[2017-05-31] MEDS: Metoprolol Succinate XL TAB* 50 MG PO SCH (08:07)
[2017-05-31] MEDS: Insulin LISPRO* 1 UNITS UNIT SUBCUT SCH (08:08)
[2017-05-31] MEDS ORDERED: Insulin GLARGINE(*) 1 UNITS UNIT SUBCUT SCH (09:00)
[2017-05-31] MEDS ORDERED: Insulin GLARGINE(*) 1 UNITS UNIT SUBCUT ONE (09:09)
[2017-05-31 09:11] VITALS: BP 135/74
--- NOTE | 2017-05-31 09:12 | PN ---
Subjective Date of Service: 05/31/17 Interval History: Patient seen and examined at beside. Patient's sugars up this morning. Patient states pain controlled. Eager for discharge. Family History: Unchanged from Admission Social History: Unchanged from Admission Past Medical History: Unchanged from Admission Objective Active Medications: Amlodipine Besylate (Norvasc Tab*) 2.5 mg PO QAM [facility] Ascorbic Acid (Vitamin C Tab*) 1,000 mg PO QAM [facility] Aspirin (Aspirin Tab*) 325 mg PO BID [facility] Clindamycin HCl (Cleocin Cap*) 150 mg PO QID [facility] Dextrose (D50w Syringe 50 Ml*) 12.5 gm IV PUSH .FOR FS < 60 - SS PRN Diphenhydramine HCl (Benadryl Iv*) 25 mg IV Q6H PRN Docusate Sodium (Colace Cap*) 100 mg PO BID [facility] Fluticasone Propionate (Flonase Nasal [place] 50mcg*) 1 spray NASAL DAILY PRN Glipizide (Glucotrol Tab*) 5 mg PO BID [facility] Hydrochlorothiazide (Hydrodiuril Tab*) 12.5 mg PO QAM [facility] Sodium Chloride (Ns 0.9% 500 Ml Bag*) 500 mls @ 0 mls/hr IV PER RATE [facility] Insulin Glargine (Lantus(*)) 15 units SUBCUT DAILY [facility] Insulin Glargine (Lantus(*)) 7 units SUBCUT ONCE [facility] Insulin Human Lispro (Humalog*) 0 units SUBCUT AC [facility] Levothyroxine Sodium (Synthroid Tab*) 125 mcg PO 0600 [facility] Lisinopril (Prinivil Tab*) 40 mg PO QAM [facility] Magnesium Hydroxide (Milk Of Magnesia Liq*) 30 ml PO Q6H PRN Metoprolol Succinate (Toprol Xl Tab*) 50 mg PO BID [facility] Morphine Sulfate (Morphine Inj (Syringe)*) 2 mg IV Q2H PRN Multivitamins (Theragran Tab*) 1 tab PO DAILY [facility] Chromium Picolinate [Chromium Picolinate ] 200 Mcg 200 mcg PO QPM [facility] Ondansetron HCl (Zofran Inj*) 4 mg IV Q6H PRN Oxycodone HCl (Roxycodone Tab*) 10 mg PO Q4H PRN Oxycodone HCl (Roxycodone Tab*) 5 mg PO Q4H PRN Polyethylene Glycol/Electrolytes (Miralax*) 17 gm PO DAILY PRN Trazodone HCl (Desyrel Tab*) 25 mg PO BEDTIME PRN Valacyclovir HCl (Valtrex 500 Mg (*)) 500 mg PO DAILY PRN; Protocol 05/31/17 05/31/17 05/31/17 03:55 05:45 08:08 Temperature 98.5 F Pulse Rate 93 Respiratory 16 18 18 Rate Blood Pressure 145/73 (mmHg) O2 Sat by Pulse 98 Oximetry Oxygen Devices in Use Now: None Appearance: sitting up in bed, NAD Eyes: No Scleral Icterus, PERRLA Ears/Nose/Mouth/Throat: NL Teeth, Lips, Gums Neck: NL Appearance and Movements; NL JVP Respiratory: Symmetrical Chest Expansion and Respiratory Effort, Clear to Auscultation Cardiovascular: NL Sounds; No Murmurs; No JVD, RRR Abdominal: NL Sounds; No Tenderness; No Distention Extremities: No Edema Skin: - - L knee incision C/D/I Neurological: Alert and Oriented x 3, NL Muscle Strength and Tone Result Diagrams: 05/31/17 06:17 05/29/17 06:10 Assess/Plan/Problems-Billing Patient is a 51 y/o F w/ hx of CAD s/p stents 2013, HTN, hypothyroidism, Type II diabetes, HTN who underwent an elective left toal knee replacement on 2016. Hospitalists were asked to assist with management of the patient medical co-morbities. - Patient Problems (1) Status post left knee replacement Comment: Management per Orthopedic Surgery. H/H stable post-op. Continue pain control with PO Oxycodone. PT/OT (2) Type II diabetes mellitus Comment: Increase AM Lantus to total of 22 this AM. This is close to what the patient takes at home. Continue Lispro slising scale. Patient will restart Victoza at discharge. (3) Dysuria Comment: UA negative. Suspect from elevated sugars. (4) CAD (coronary artery disease) Comment: Continue ASA and beta ida. She does not tolerate statins. (5) HTN (hypertension) Comment: Controlled with home regimen of Lisinopril, Amlodipine, HCTZ, and Metoprolol. (6) HLD (hyperlipidemia) Comment: The patient does not tolerate statins. (7) Hypothyroidism Comment: Continue Synthroid. (8) DVT prophylaxis Comment: ASA BID per Ortho. (9) Full code status Status and Disposition: Inpatient. Dispo per orthopedic surgery.
--- NOTE | 2017-06-01 02:18 | DS ---
DISCHARGE SUMMARY: DATE OF ADMISSION: 05/28/17 DATE OF DISCHARGE: 05/31/17 ATTENDING PHYSICIAN: Dr. Adriel Otero * (DICTATED BY OLENA HERNANDEZ) ADMISSION DIAGNOSIS: Severe osteoarthritis left knee with varus malalignment. DISCHARGE DIAGNOSIS: Severe osteoarthritis left knee with varus malalignment. SURGERY PERFORMED: Left total knee arthroplasty. HOSPITAL COURSE: The patient is a 51-year-old female with severe osteoarthritic medial compartment arthritis that failed conservative management with anti- inflammatories, cortisone injections, and an utility bill collection clerk brace. The patient elected to proceed with surgical intervention and was taken to the operating room under the care of Dr. Adriel Otero on the date of 05/28/17. She tolerated the aforementioned procedure without complications and was taken to the PACU in stable condition. Postoperatively, she progressed satisfactorily with physical therapy and occupational therapy goals, although she did have some difficulty with pain management on first and second postoperative days. However, by her third postoperative day, she was doing much better in terms of pain taking oxycodone pain medication. She mastered her goals and she felt ready for discharge to home and was found to be medically and orthopedically stable for discharge on the day of 05/31/18. CONDITION ON DISCHARGE: The patient is afebrile, 98.9, pulse 96, respiratory rate 17, O2 sats 99% on room air, blood pressure 135/74. Her knee incision was healing uneventfully without evidence of infection. Her calf is nontender and soft. Her neurovascular status intact with active dorsiflexion and plantar flexion of her left ankle. PLAN: Discharge to home. Continue to bear weight as tolerated on the left lower extremity. She will continue with aspirin 325 mg p.o. b.i.d. and will follow up with Dr. Otero in roughly 4 to 6 weeks as scheduled. If she has any difficulties with drainage, increased pain in her knee, redness, swelling, calf pain or swelling, fever or chills, the office is to be contacted prior to her scheduled appointment with Dr. Otero. OLENA HERNANDEZ [id number]/[facility] #: [id number] [facility]ITAL[facility]
== END 2017-05-31 11:05 | disposition home health service (06) | DRG 302 ==
LOC: AA 06:01 → SSU 13:23
PROVIDERS: ADMIT Orthopaedic Surgery; ATTEND Orthopaedic Surgery
PROC: 0SRD0J9 Replacement of Left Knee Joint with Synthetic Substitute, Cemented, Open Approach (ICD-10-PCS; principal; 2017-05-28 07:30)
DX: M17.12 Unilateral primary osteoarthritis, left knee (principal); D62 Acute posthemorrhagic anemia; I10 Essential (primary) hypertension; Z68.43 Body mass index [BMI] 50.0-59.9, adult; I25.10 Atherosclerotic heart disease of native coronary artery without angina pectoris; M21.162 Varus deformity, not elsewhere classified, left knee; M25.762 Osteophyte, left knee; E03.9 Hypothyroidism, unspecified; E11.9 Type 2 diabetes mellitus without complications; E78.5 Hyperlipidemia, unspecified; R30.0 Dysuria; E66.3 Overweight; Z86.19 Personal history of other infectious and parasitic diseases; I25.2 Old myocardial infarction; Z95.5 Presence of coronary angioplasty implant and graft; Z87.891 Personal history of nicotine dependence
CPT/HCPCS: 36415; 80048; 81003; 81025; 85014; 85018; 94760; A9270-GY; C1776; J0690; J1170; J2250; J2270; J2405; J2704; J2765; J2795

== ENCOUNTER 2018-01-22 11:43 | Emergency (ER) | payer SELFPAY ==
[2018-01-22] MEDS ORDERED: NS 0.9% 1000 ML* 1,000 ML IV ONE (12:13)
[2018-01-22 13:40] LABS: ABS Basophils 0.1 10^3/ul (0-0.2); ABS Eosinophils 0.3 10^3/ul (0-0.6); ABS Lymphocytes 2.1 10^3/ul (1.0-4.8); ABS Monocytes 0.7 10^3/ul (0-0.8); ABS Nucleated RBC 0 10^3/ul; Eosinophil % 2.1 % (0-6); Hematocrit 37 % (35-47); Hemoglobin 12.3 g/dl (12.0-16.0); Lymphocyte % 17.2 % (25-47); Mean Corpuscular HGB Conc 34 g/dl (31-36); Mean Corpuscular Hemoglobin 28 pg (27-31); Mean Corpuscular Volume 84 fL (80-97); Mean Platelet Volume 7.8 um3 (7.4-10.4); Nucleated Red Blood Cells % 0.1; Platelet Count 323 10^3/ul (150-450); Red Blood Count 4.38 10^6/ul (4.0-5.4); Red Cell Distribution Width 17 % (10.5-15); White Blood Count 12.1 10^3/ul (3.5-10.8)
[2018-01-22 13:51] LABS: INR 0.9 (0.77-1.02)
--- NOTE | 2018-01-22 13:57 | RAD ---
HISTORY: Vaginal bleeding COMPARISONS: None TECHNIQUE: Multiple transverse and longitudinal ultrasound images were obtained of the pelvis using grayscale, color Doppler, and spectral Doppler imaging using the transabdominal and endovaginal transducers. FINDINGS: The study is limited by patient body habitus. UTERUS: The uterus measures 10.6 x 4.7 x 6.2 cm. The uterus is normal in shape, size, contour, and echotexture. Cervical nabothian cysts are noted. ENDOMETRIUM: The endometrial stripe is smooth. The endometrium measures 2.1 cm in thickness. CUL-DE-SAC: There is no free fluid within the cul-de-sac. RIGHT OVARY: The right ovary measures 4.5 x 2.1 x 2.5 cm. Normal arterial and venous waveforms are identifiable within the ovary on spectral Doppler imaging. LEFT OVARY: The left ovary is not clearly visualized. BLADDER: The bladder is not well visualized. OTHER: None IMPRESSION: 1. LIMITED STUDY. 2. THICKENED ENDOMETRIUM. 3. THE LEFT OVARY IS NOT VISUALIZED.
[2018-01-22 13:59] LABS: EGFR Non-African American 60.8 (>60)
--- NOTE | 2018-01-22 15:29 | PN ---
Progress Note - Progress Note Date of Service: 01/22/18 Note: pelvic done by Loida HYATT, with cata as junior automation engineer normal external exam speculum exam 3cc-5cc blood present without clots normal bimanual exam, os not open
--- NOTE | 2018-01-22 16:52 | CONSULT ---
Consult Consult: HPI: heavy vaginal bleeding. Pt had been having regular monthly periods that were not too heavy. She had a normal one a the beginning of this month. Then had about 1 week of no bleeding. Then starting with light bleeding on saturday that became heavy on saturday. She still managed to go to work but was sometimes using a tampon and pad and changing almost every hour. She is passing large clots. Not feeling dizzy or light headed. Is not on any hormones. Pt is a long time patient of our practice. History reviewed in our system. Pt will start progesterone (norethindrone) 5mg TID until she stops bleeding, then decrease to 2 pills x1 week, then 1 pill x1 week. She will f/u at our office.
--- NOTE | 2018-01-22 17:13 | ED ---
Patrick Orr Julia, scribed for Rigoberto Whyte MD on 01/22/18 at 1214 . GI/ HPI - HPI Summary HPI Summary: This is a 52 year old F presenting to [facility] accompanied by her with a chief complaint of persistent heavy vaginal bleeding since 01/19/18. She states roughly two weeks ago she had a normal menstrual cycle, a week passed without any vaginal bleeding. She states her vaginal bleeding has worsened over the past three days increasing in heaviness. She has been waking up every hour or so the past two nights needing to change a pad. She states she has been bleeding through six tampons and pads a day. Today she describes her bleeding as explosive and chunky. Her CAREER DEVELOPMENT DIRECTOR, Dr. Lake office, recommended she come to the ED. She reports RLQ and R flank pain. The patient rates the pain 8/ 10 in severity She denies dizziness, lightheadedness, and change of . - History of Current Complaint Chief Complaint: EDVaginalBleeding Time Seen by Provider: 01/22/18 12:09 Stated Complaint: HEAVY BLEEDING FOR 2 DAYS Hx Obtained From: Patient Onset/Duration: Started Days Ago Timing: Constant Severity: Mild Current Severity: Moderate Vaginal Bleeding Description: Clots Number of Pads per Day: 6 - and tampon Pain Intensity: 8 Location of Pain: RLQ, Flank Associated Signs and Symptoms: Positive: Back Pain. Negative: Dizziness, Lightheadedness - Allergy/Home Medications Allergies/Adverse Reactions: Allergies Allergy/AdvReac Type Severity Reaction Status Date / Time Adhesive Tape Allergy Rash Verified 01/22/18 12:01 Latex, Natural Rubber Allergy Rash Verified 01/22/18 12:01 Home Medications: Home Medications Ascorbic Acid TAB* [Vitamin C TAB*] 1,000 mg PO QAM 01/22/18 [History Confirmed 01/22/18] Aspirin EC TAB* [Ecotrin EC Low Dose 81 MG*] 81 mg PO QAM 01/22/18 [History Confirmed 01/22/18] Chromium Picolinate 200 mcg PO QPM 01/22/18 [History Confirmed 01/22/18] Hydrochlorothiazide TAB* [Hydrodiuril TAB*] 25 mg PO QAM 01/22/18 [History Confirmed 01/22/18] Ibuprofen TAB* [Advil TAB*] 100 mg PO Q4H PRN MDD 600mg 01/22/18 [History Confirmed 01/22/18] Insulin Degludec/Liraglutide [Xultophy 100/3.6 100-3.6 Unit-mg/ml] 30 units SUBCUT QAM 01/22/18 [History Confirmed 01/22/18] Iron 28 mg PO QAM 01/22/18 [History Confirmed 01/22/18] Levothyroxine TAB* [Synthroid TAB*] 125 mcg PO QAM 01/22/18 [History Confirmed 01/22/18] Lisinopril TAB* [Prinivil TAB*] 40 mg PO QAM 01/22/18 [History Confirmed ] Metoprolol Succinate XL TAB* [Toprol XL TAB*] 50 mg PO BID 01/22/18 [History Confirmed 01/22/18] Multivitamins/Minerals TAB* [Theragran/minerals TAB*] 1 tab PO BID 01/22/18 [ History Confirmed 01/22/18] amLODIPine TAB* [Norvasc 5 mg TAB*] 2.5 mg PO QAM 01/22/18 [History Confirmed ] glipiZIDE TAB* [Glucotrol TAB*] 5 mg PO BID 01/22/18 [History Confirmed 01/22/18 ] metFORMIN* [Glucophage 1000 MG TAB *] 1,000 mg PO BID 01/22/18 [History Confirmed 01/22/18] traMADol TAB* [Ultram*] 50 mg PO QID PRN 01/22/18 [History Confirmed 01/22/18] PMH/Surg Hx/FS Hx/Imm Hx Cardiovascular History: Denies: Hx Myocardial Infarction History: Denies: Hx Acute Renal Failure EENT History: Denies: Hx Deafness Infectious Disease History: No Infectious Disease History: Denies: Traveled Outside the [place] in Last 30 Days - Family History Known Family History: Positive: Hypertension - Social History Occupation: Employed Full-time Alcohol Use: None Hx Substance Use: No Hx Tobacco Use: No Review of Systems Positive: Abdominal Pain Positive: flank pain, other - vaginal bleeding Neurological: Negative - lightheadedness/dizziness All Other Systems Reviewed And Are Negative: Yes Physical Exam - Summary Physical Exam Summary: VITAL SIGNS: Reviewed. GENERAL: Patient is a obese female who is lying comfortable in the stretcher. Patient is not in any acute respiratory distress. No acute pain distress. HEAD AND FACE: No signs of trauma. No ecchymosis, hematomas or skull depressions. No sinus tenderness. EYES: PERRLA, EOMI x 2, No injected conjunctiva, no nystagmus. EARS: Hearing grossly intact. Ear canals and tympanic membranes are within normal limits. MOUTH: Oropharynx within normal limits. NECK: Supple, trachea is midline, no adenopathy, no JVD, no carotid bruit, no c- spine tenderness, neck with full ROM. CHEST: Symmetric, no tenderness at palpation LUNGS: Clear to auscultation bilaterally. No wheezing or crackles. CVS: Regular rate and rhythm, S1 and S2 present, no murmurs or gallops appreciated. ABDOMEN: Soft, non-tender. No signs of distention. No rebound no guarding, and no masses palpated. Bowel sounds are normal. EXTREMITIES: FROM in all major joints, no edema, no cyanosis or clubbing. NEURO: Alert and oriented x 3. No acute neurological deficits. Speech is normal and follows commands. SKIN: Dry and warm OLENA Hartmann performed Pelvic exam, per patient's request for a female examiner. Joaquina is the call or contact centre team leader. Results discussed. Note reviewed. Triage Information Reviewed: Yes Vital Signs On Initial Exam: Initial Vitals Temp Pulse Resp BP Pulse Ox 96.3 F 80 18 168/94 98 01/22/18 11:54 01/22/18 11:54 01/22/18 11:54 01/22/18 11:54 01/22/18 11:54 Vital Signs Reviewed: Yes Diagnostics - Vital Signs Vital Signs Temp Pulse Resp BP Pulse Ox 01/22/18 11:54 96.3 F 80 18 168/94 98 - Laboratory Lab Results: Lab Results 01/22/18 01/22/18 01/22/18 Range/Units 13:24 13:24 13:24 WBC 12.1 H (3.5-10.8) 10^3/ul RBC 4.38 (4.0-5.4) 10^6/ul Hgb 12.3 (12.0-16.0) g/dl Hct 37 (35-47) % MCV 84 (80-97) fL MCH 28 (27-31) pg MCHC 34 (31-36) g/dl RDW 17 H (10.5-15) % Plt Count 323 (150-450) 10^3/ul MPV 7.8 (7.4-10.4) um3 Neut % (Auto) 74.6 (38-83) % Lymph % (Auto) 17.2 L (25-47) % [place] % (Auto) 5.5 (0-7) % Eos % (Auto) 2.1 (0-6) % Baso % (Auto) 0.6 (0-2) % Absolute Neuts (auto) 9.0 H (1.5-7.7) 10^3/ul Absolute Lymphs (auto) 2.1 (1.0-4.8) 10^3/ul Absolute Monos (auto) 0.7 (0-0.8) 10^3/ul Absolute Eos (auto) 0.3 (0-0.6) 10^3/ul Absolute Basos (auto) 0.1 (0-0.2) 10^3/ul Absolute Nucleated RBC 0 10^3/ul Nucleated RBC % 0.1 INR (Anticoag Therapy) 0.90 (0.77-1.02) APTT 27.0 (26.0-36.3) seconds Sodium 134 L (139-145) mmol/L Potassium 3.6 (3.5-5.0) mmol/L Chloride 100 L (101-111) mmol/L Carbon Dioxide 26 (22-32) mmol/L Anion Gap 8 (2-11) mmol/L BUN 22 (6-24) mg/dL Creatinine 0.96 H (0.51-0.95) mg/dL Est GFR ( Amer) 78.2 (>60) Est GFR (Non-Af Amer) 60.8 (>60) BUN/Creatinine Ratio 22.9 H (8-20) Glucose 172 H (70-100) mg/dL Calcium 8.9 (8.6-10.3) mg/dL Total Bilirubin 0.30 (0.2-1.0) mg/dL AST 14 (13-39) U/L ALT 13 (7-52) U/L Alkaline Phosphatase 73 (34-104) U/L Total Protein 6.8 (6.4-8.9) g/dL Albumin 3.3 (3.2-5.2) g/dL Globulin 3.5 (2-4) g/dL Albumin/Globulin Ratio 0.9 L (1-3) Beta HCG, Quant < 0.60 mIU/mL Result Diagrams: 01/22/18 13:24 01/22/18 13:24 Lab Statement: Any lab studies that have been ordered have been reviewed, and results considered in the medical decision making process. - Additional Comments Diagnostic Additional Comments: A Pelvic/Transvaginal US reveals, as per radiologist: 1. LIMITED STUDY. 2. THICKENED ENDOMETRIUM. 3. THE LEFT OVARY IS NOT VISUALIZED. Dr. Whyte has reviewed this report. GIGU Course/Dx - Course Assessment/Plan: This patient is a 52-year-old female who presents to the emergency room with a chief complaint of having severe vaginal bleeding. The patient reports that she is changing pads every hour since Saturday. Patient denies any dizziness or feeling like she is going to pass out. Last normal Menstrual cycle it was a week and a half ago. Initially the patient was placed on a line maintainer section and she was started in IV fluids. She is hemodynamically stable. Blood test results without any significant abnormality except for glucose of 172. Beta hCG is negative. Pelvic ultrasound impression: Limited study. thickened endometrium. The left ovary is not visualized. Claudette HYATT performed pelvic exam. See her note. At this time I discussed the case with Dr. Aguilar who is her YARD WORKER doctor. She came and examined the patient and he determined that the patient can be discharged home with a prescription for Norethindrone. I discussed all the findings and test results with the patient. Patient was instructed to return to the emergency room immediately if any of the symptoms return or worsens. Plan of care was discussed with the patient and understands and agrees. All questions were answered at patient satisfaction. There were no further complaints or concerns. Lung exam before discharge: CTA B/L. Good air exchange. No wheezing or crackles heard. CVS: S1 and S2 present. No murmurs appreciated. Patient is alert and oriented x 3. Patient is hemodynamically stable. Patient will be discharged home with follow up PCP in the next 2-3 days - Diagnoses Provider Diagnoses: Vaginal bleeding - Physician Notifications Discussed Care Of Patient With: Italia Aguilar - gynecology Time Discussed With Above Provider: 15:34 Instructed by Provider To: MD Will See In ED - also recommends progesterone Discharge - Sign-Out/Discharge Documenting (check all that apply): Discharge/Admit/Transfer - Discharge Plan Condition: Stable Disposition: HOME Prescriptions: Norethindrone (NF) [[place] (NF)] 0.35 mg PO TID #50 tab Patient Education Materials: Dysfunctional Uterine Bleeding (ED) Referrals: Thiago Rivers MD [Primary Care Provider] - Italia Aguilar MD [Medical Doctor] - 1 Day (Follow up with Dr. Aguilar. ) Additional Instructions: RETURN TO THE EMERGENCY DEPARTMENT FOR CHANGING OR WORSENING SYMPTOMS. - Billing Disposition and Condition Condition: STABLE Disposition: HOME The documentation as recorded by the Patrick canales Julia accurately reflects the service I personally performed and the decisions made by Pato tenorio Walter, MD.
[2018-01-22 17:18] VITALS: BP 133/72
== END 2018-01-22 17:16 | disposition home or self-care (01) ==
LOC: ED 11:43 → MERGE 11:43 → ED 17:16
DX: N93.9 Abnormal uterine and vaginal bleeding, unspecified (principal); R93.8 Abnormal findings on diagnostic imaging of other specified body structures
CPT/HCPCS: 36415; 76830; 76856; 80053; 84702; 85025; 85610; 85730; 99282

== ENCOUNTER 2020-12-14 09:43 | Inpatient (IN) ==
[2020-12-14] MEDS ORDERED: Dextrose 50% Syringe 50 ml 25 GM/50 ML SYRINGE IV PUSH PRN (12:32)
[2020-12-14 12:39] LABS: ABS Eosinophils 0.1 10^3/ul (0-0.6); ABS Lymphocytes 1.8 10^3/ul (1.0-4.8); ABS Monocytes 0.9 10^3/ul (0-0.8); ABS Neutrophils 9.4 10^3/ul (1.5-7.7); Eosinophil % 0.5 %; Hematocrit 32 % (35-47); Hemoglobin 10.6 g/dL (12.0-16.0); Lymphocyte % 14.4 %; Mean Corpuscular HGB Conc 33 g/dL (31-36); Mean Corpuscular Hemoglobin 28 pg (27-31); Mean Corpuscular Volume 83 fL (80-97); Mean Platelet Volume 8.6 fL (7.4-10.4); Platelet Count 244 10^3/uL (150-450); Red Blood Count 3.83 10^6 /uL (3.70-4.87); Red Cell Distribution Width 16 % (10-15); White Blood Count 12.2 10^3/uL (3.5-10.8)
[2020-12-14 13:05] LABS: ALT 57 U/L (7-52); Albumin 3.2 g/dL (3.2-5.2); Albumin/Globulin Ratio 0.9 (1-3); Alkaline Phosphatase 142 U/L (34-104); BUN/Creatinine Ratio 23.7 (8-20); Blood Urea Nitrogen 32 mg/dL (6-24); CO2 Carbon Dioxide 25 mmol/L (22-32); Calcium 8.9 mg/dL (8.6-10.3); Chloride 98 mmol/L (101-111); EGFR African American 49.1 (>60); EGFR Non-African American 40.6 (>60); Globulin 3.4 g/dL (2-4); Glucose 352 mg/dL (70-100); Sodium 131 mmol/L (135-145); Total Protein 6.6 g/dL (6.4-8.9)
[2020-12-14 13:07] LABS: Anion Gap 8 mmol/L (2-11)
[2020-12-14 13:51] LABS: Potassium Redraw 3.8 mmol/L (3.5-5.0)
[2020-12-14] MEDS ORDERED: NS 0.9% 1000 ml BAG 1,000 ML IV SCH (14:00)
[2020-12-14] MEDS ORDERED: Vancomycin per Pharmacy 1 EA NOTE FOLLOW UP PRN (14:19)
[2020-12-14] MEDS ORDERED: Vancomycin 1,750 MG in NS 0.9% 500 ml BAG 500 ML IVPB ONE (14:30)
[2020-12-14 14:34] LABS: Total Iron Binding Capacity 238 mcg/dL (250-450); Transferrin 170 mg/dL (203-362)
[2020-12-14] MEDS: Heparin 5000 UNITS/ML 1 mL VIAL SUBCUT SCH ×2 (14:35→21:12)
[2020-12-14 14:41] LABS: Ferritin 162.6 ng/mL (11-307)
[2020-12-14] MEDS: Cefepime 2 GM in Dextrose 2 GM/50 ML BAG IV SCH (17:13)
[2020-12-14] MEDS: metroNIDAZOLE IV 500 MG/100ML 500 MG/100 ML BAG IVPB SCH (18:10)
[2020-12-15] MEDS: Vancomycin 1,250 MG in NS 0.9% 250 ml 250 ML IVPB SCH ×2 (03:41→14:05)
[2020-12-15] MEDS: Cefepime 2 GM in Dextrose 2 GM/50 ML BAG IV SCH ×2 (06:12→15:46)
[2020-12-15] MEDS: Heparin 5000 UNITS/ML 1 mL VIAL SUBCUT SCH ×3 (06:16→21:43)
[2020-12-15 06:52] LABS: ABS Eosinophils 0.1 10^3/ul (0-0.6); ABS Monocytes 0.7 10^3/ul (0-0.8); ABS Neutrophils 7.8 10^3/ul (1.5-7.7); Eosinophil % 1.3 %; Hematocrit 31 % (35-47); Hemoglobin 10.2 g/dL (12.0-16.0); Lymphocyte % 19.1 %; Mean Corpuscular HGB Conc 33 g/dL (31-36); Mean Corpuscular Hemoglobin 28 pg (27-31); Mean Corpuscular Volume 85 fL (80-97); Nucleated Red Blood Cells % 0.1; Platelet Count 248 10^3/uL (150-450); Red Blood Count 3.67 10^6 /uL (3.70-4.87); Red Cell Distribution Width 16 % (10-15); White Blood Count 10.6 10^3/uL (3.5-10.8)
[2020-12-15 06:59] LABS: INR 1.14 (0.82-1.09)
[2020-12-15] MEDS: metroNIDAZOLE IV 500 MG/100ML 500 MG/100 ML BAG IVPB SCH ×2 (07:03→17:11)
[2020-12-15 07:07] LABS: BUN/Creatinine Ratio 22.8 (8-20); Calcium 8.6 mg/dL (8.6-10.3); EGFR African American 59.7 (>60); EGFR Non-African American 49.3 (>60); Potassium 3.8 mmol/L (3.5-5.0)
[2020-12-15] MEDS ORDERED: Insulin GLARGINE 100 un/ml 10 ml VIAL SUBCUT SCH (09:00)
[2020-12-15] MEDS ORDERED: Dextrose 50% Syringe 50 ml 25 GM/50 ML SYRINGE IV PUSH PRN (14:47)
[2020-12-16] MEDS: Cefepime 2 GM in Dextrose 2 GM/50 ML BAG IV SCH (03:38)
[2020-12-16] MEDS: metroNIDAZOLE IV 500 MG/100ML 500 MG/100 ML BAG IVPB SCH (04:26)
[2020-12-16] MEDS: Heparin 5000 UNITS/ML 1 mL VIAL SUBCUT SCH ×2 (05:45→15:02)
[2020-12-16 06:44] LABS: Hematocrit 34 % (35-47); Hemoglobin 10.9 g/dL (12.0-16.0)
[2020-12-16 07:01] LABS: BUN/Creatinine Ratio 22.4 (8-20); Calcium 9.1 mg/dL (8.6-10.3); EGFR African American 64.2 (>60); Potassium 4.4 mmol/L (3.5-5.0)
[2020-12-16] MEDS ORDERED: Insulin GLARGINE 100 un/ml 10 ml VIAL SUBCUT SCH (09:00)
[2020-12-16 10:19] LABS: C Reactive Protein 98.4 mg/L (<8.01)
[2020-12-16] MEDS ORDERED: Vancomycin Trough Check NOTE FOLLOW UP ONE (13:30)
[2020-12-16] MEDS ORDERED: cefTRIAXone 2 GM ADDV.VIAL 2 GM in NS 0.9% 100 ml BAG 100 ML IV SCH (15:00)
[2020-12-16 15:23] VITALS: BP 133/69
== END 2020-12-16 19:00 | disposition home or self-care (01) | DRG 344 ==
LOC: SSU 11:31
PROVIDERS: ADMIT Internal Medicine; ATTEND Pediatrics